=== PATIENT | female | born 1985 | race Caucasian/White ===

== ENCOUNTER 2020-04-18 14:47 | Emergency (ER) | payer OTHER, MEDICAID ==
[~2020-04-18] VITALS: Ht 154.9 cm; Wt 52.2 kg
[~2020-04-18 14:47] MED LIST: ALPRAZOLAM 0.50.5 MG PO; CIPROFLOXIN HC2.5 M1 OPHTHALMIC; FLEXERIL PO; HYDROCODONE-AP1 EAC6 PO; LEXAPRO 10 MG T10 M2 PO; LOXAPINE10 MG PO; MUCINEX600 MG; NOHOMEMEDICATIONS; PROZAC 10 MG CA10 MG PO; SUDAFED30 MG; TRAMADOL 50 MG50 MG PO
[2020-04-18 14:55] VITALS: BP 109/64
[2020-04-18] MEDS ORDERED: XANAX1 MG PO (14:57)
[2020-04-18] MEDS ORDERED: LEXAPRO 10 MG T10 M1 PO (14:57)
== END 2020-04-18 15:09 | disposition home or self-care (01) ==
LOC: M.ERS 14:47
DX: L98.8 Other specified disorders of the skin and subcutaneous tissue (principal); Z98.51 Tubal ligation status; Z88.5 Allergy status to narcotic agent; Z88.8 Allergy status to other drugs, medicaments and biological substances